=== PATIENT | male | born 1960 | race Caucasian/White ===

== ENCOUNTER → 2018-04-23 | Day surgery (SDC) | payer OTHER ==
[~2018-04-23] MED LIST: CHLORHEXIDINE 0.12% 15 ML MOUTHWASH. MM; DEXAMETHASONE SOD PHOS 20 MG/5 ML VIAL.; GELATIN SPONGE SIZE 100.; LIDOCAINE 1% PF 2 ML VIAL. ID; LIDOCAINE 2% PF Vial for OR 5 ML VIAL.; MIDAZOLAM HCL/PF 2 MG/2 ML VIAL.; MORPHINE SULFATE 4 MG/ML DISP.SYRIN. IV; ONDANSETRON PF 4 MG/2 ML VIAL.; ONDANSETRON PF 4 MG/2 ML VIAL. IV; PHENYLEPHRINE 0.25% NASAL SPRAY 15ML BOTTLE. NS; PHENYLEPHRINE 10 MG/ML VIAL.; PROCHLORPERAZINE 10 MG/2 ML VIAL. IV; PROPOFOL 20 ML IV; ROCURONIUM 50 MG/5 ML VIAL.; SEVOFLURANE > 120 MINUTES. IH; SUCCINYLCHOLINE 200 MG/10 ML VIAL.; ePHEDrine PF IN SALINE 50 MG/5 ML DISP.SYRIN IV; fentaNYL PF VIAL 100 MCG/2 ML VIAL; fentaNYL PF VIAL 100 MCG/2 ML VIAL IV
[2018-04-23] MEDS: IV RINGERS,LACTATED 1000ML 1,000 ML IV (11:02)
[2018-04-23] MEDS: BUPIVAC MPF-EPI 0.5%-1:200000 30 ML VIAL. (14:22)
[2018-04-23] MEDS: LIDOCAINE 1%/EPI 1:100,000 30 ML VIAL. IJ (15:39)
== END ==
LOC: SURG 10:04
DX: K02.9 Dental caries, unspecified (principal); F32.9 Major depressive disorder, single episode, unspecified; F41.9 Anxiety disorder, unspecified; G47.00 Insomnia, unspecified; F43.10 Post-traumatic stress disorder, unspecified
CPT/HCPCS: 41874; A7015; J0330; J0690; J1100; J2250; J2405; J2704; J3010; J3490